=== PATIENT | female | born 1960 | race Caucasian/White ===

== ENCOUNTER → 2017-07-17 | Outpatient (CLI) | payer MEDICARE, BC ==
[~2017-07-17] MED LIST: ASPI-816 PO; ATOR10TA24 PO; CIPR-344 PO; GABA-549 PO; LEVO-3 PO; LISI30TA49 PO; LYRICA; METF-420 PO; METR-1 PO; NAPR500T75 PO; OMEP10CA40 PO; OMEP40CA48 PO; OXYC-865 PO; SITA50TA6 PO; TRAM-420 PO
== END ==
LOC: LAB 07:26
PROVIDERS: ATTEND Nurse Practitioner Family
DX: I10 Essential (primary) hypertension (principal); E11.65 Type 2 diabetes mellitus with hyperglycemia; E03.9 Hypothyroidism, unspecified
CPT/HCPCS: 36415; 82465; 83036; 83718; 84443; 84478

== ENCOUNTER 2018-02-20 10:08 | Emergency (ER) | payer MEDICARE, BC ==
[~2018-02-20 10:08] MED LIST changes: -ASPI-816 PO; +ASPI-870 PO; +FLU150 FT; -METF-420 PO; +METF-452 PO; +NITR-105 PO; +NYST100016 PO; +PHEN100T27 PO; +SULF-198 PO
[2018-02-20] MEDS ORDERED: CRAN250T (10:20)
[2018-02-20] MEDS ORDERED: ONDANSETRON 4 MG/2 ML VIAL IVP ONE (10:25)
[2018-02-20] MEDS ORDERED: NS(*) 0.9% 1000 ML BAG 1,000 ML IV ONE (10:25)
--- NOTE | 2018-02-20 10:29 | ER Report ---
History and Physical Time Seen By MD: 10:18 Hx. of Stated Complaint: N/V/D STARTED 3 DAYS AGO HPI/ROS CHIEF COMPLAINT: nausea, vomiting, diarrhea, abdominal cramping HISTORY OF PRESENT ILLNESS: pt is diabetic who has had 2 days of nausea, multiple loose stools, decreased appetite, chills. Abd pain is mild, cramping, radiates throughout abdomen. Pt attempted pepto bismol without relief. Has not taken diabetic meds in 2 d REVIEW OF SYSTEMS: Constitutional: chills Eyes: No discharge. ENT: No sore throat. Cardiovascular: No chest pain, no palpitations. Respiratory: No cough, no shortness of breath. Gastrointestinal: above Genitourinary: No hematuria. Musculoskeletal: intermittent l flank pain, now resolved Skin: No rashes. Neurological: mild salgado Remainder of the 14 system rev: Yes Allergies: Coded Allergies: Penicillins (Verified Adverse Reaction, Severe, VOMITING, 02/20/18) morphine (Verified Adverse Reaction, Severe, VOMITING, 02/20/18) Home Meds Reported Medications Cranberry Fruit Concentrate (Azo Cranberry) 250 Mg Tab.chew, PRN 02/20/18 Aspirin (Children's Aspirin) 81 Mg Tab.chew, 1 TAB PO DAILY 04/26/17 Atorvastatin Calcium (LIPITOR) 10 Mg Tablet, 1 TAB PO QDAY, TAB 04/26/17 Omeprazole (OMEPRAZOLE) 40 Mg Capsule.dr, 40 MG PO QDAY, CAP 04/26/17 Levothyroxine Sodium (LEVOTHYROXINE SODIUM) 100 Mcg Tablet, 100 MCG PO QDAY, TAB 03/01/17 Gabapentin (GABAPENTIN) 300 Mg Capsule, 300 MG PO BID, CAPSULE 03/11/16 Sitagliptin Phosphate (JANUVIA) 50 Mg Tablet, 50 MG PO QDAY 03/11/16 Metformin Hcl (METFORMIN HCL) 1,000 Mg Tablet, 1 TAB PO BID, TAB 04/29/15 Tramadol Hcl (TRAMADOL HCL) 50 Mg Tablet, 50 MG PO PRN PRN for PAIN 04/29/15 Discontinued Reported Medications Nystatin (Nystatin) 100,000 Unit/Ml Oral.susp, 5 ML PO QID PRN for 14 DAYS 01/22/18 Phenazopyridine Hcl (PHENAZOPYRIDINE HCL) 100 Mg Tablet, 100 MG PO TID, TAB 01/22/18 Sulfamethoxazole/Trimet 800-160 Mg Tab (BACTRIM DS TABLET) 1 Each Tablet, 1 TAB PO Q12H, TAB 01/22/18 Lisinopril (LISINOPRIL) 30 Mg Tablet, 30 MG PO QDAY 04/29/15 Discontinued Scripts Fluconazole (FLUCONAZOLE) 150 Mg Tab, 150 MG FT ONCE for 1 Day, #1 TAB Prov:FITZ DORSEY MD 01/22/18 Nitrofurantoin Monohyd/M-Cryst (MACROBID 100 MG CAPSULE) 100 Mg Capsule, 100 MG PO BID for 3 Days, #6 CAPSULE Prov:FITZ DORSEY MD 01/22/18 Reviewed Nurses Notes: Yes Hx Smoking: No Smoking Status: Former Smoker Hx Substance Use Disorder: No Hx Alcohol Use: No Constitutional Vital Sign - Last 24 Hours 02/20/18 02/20/18 02/20/18 02/20/18 10:11 10:15 11:04 11:15 Temp 98.0 Pulse 74 56 Resp 20 B/P (MAP) 116/78 121/76 (91) Pulse Ox 97 100 96 O2 Delivery Room Air Physical Exam General Appearance: The patient is alert, has no immediate need for airway protection and no signs of toxicity. [ ] Eyes: Pupils equal and round no pallor or injection. ENT, Mouth: Mucous membranes are moist. Respiratory: There are no retractions, lungs are clear to auscultation. Cardiovascular: Regular rate and rhythm. [ ] Gastrointestinal: Abdomen is soft and non tender, no masses, bowel sounds hyperactive Neurological: alert, oriented Skin: Warm and dry, no rashes. Musculoskeletal: Neck is supple non tender. Extremities are nontender, nonswollen and have full range of motion. DIFFERENTIAL DIAGNOSIS: After history and physical exam differential diagnosis was considered for abdominal pain including but not limited to appendicitis, cholecystitis, gastritis and urinary tract infection. Medical Decision Making Data Points Result Diagram: 02/20/18 1020 02/20/18 1020 Laboratory Hematology Test 02/20/18 10:20 02/20/18 11:06 Red Blood Count 5.07 M/uL (4.17-5.56) Mean Corpuscular Volume 85.2 fL (80.0-96.0) Mean Corpuscular Hemoglobin 28.8 pg (26.0-33.0) Mean Corpuscular Hemoglobin Concent 33.9 g/dL (32.0-36.0) Red Cell Distribution Width 14.2 % (11.5-14.5) Mean Platelet Volume 8.0 fL (7.2-11.1) Neutrophils (%) (Auto) 69.2 % (39.4-72.5) Lymphocytes (%) (Auto) 16.9 % (17.6-49.6) Monocytes (%) (Auto) 9.6 % (4.1-12.4) Eosinophils (%) (Auto) 4.0 % (0.4-6.7) Basophils (%) (Auto) 0.3 % (0.3-1.4) Nucleated RBC Relative Count (auto) 0.1 /100WBC Neutrophils # (Auto) 3.1 K/uL (2.0-7.4) Lymphocytes # (Auto) 0.8 K/uL (1.3-3.6) Monocytes # (Auto) 0.4 K/uL (0.3-1.0) Eosinophils # (Auto) 0.2 K/uL (0.0-0.5) Basophils # (Auto) 0.0 K/uL (0.0-0.1) Nucleated RBC Absolute Count (auto) 0.01 K/uL Sodium Level 139 mmol/L (137-145) Potassium Level 3.7 mmol/L (3.5-5.0) Chloride Level 100 mmol/L (98-107) Carbon Dioxide Level 23 mmol/L (22-31) Blood Urea Nitrogen 15 mg/dl (7-18) Creatinine 0.80 mg/dl (0.52-1.04) Glomerular Filtration Rate Calc > 60.0 Random Glucose 135 mg/dl (75-110) Calcium Level 9.3 mg/dl (8.4-10.2) Total Bilirubin 0.7 mg/dl (0.2-1.3) Aspartate Amino Transf (AST/SGOT) 53 U/L (0-35) Alanine Aminotransferase (ALT/SGPT) 54 U/L (0-56) Alkaline Phosphatase 74 U/L (0-126) Total Protein 7.5 g/dl (6.3-8.2) Albumin 4.1 g/dl (3.5-5.0) Lipase 75 U/L (23-300) Urine Color Yellow Urine Clarity Clear Urine pH 5.0 pH (4.8-9.5) Urine Specific [place] 1.026 Urine Protein Negative mg/dL (NEGATIVE) Urine Glucose (UA) Negative mg/dL (NEGATIVE) Urine Ketones 20 mg/dL (NEGATIVE) Urine Blood Negative (NEGATIVE) Urine Nitrite Negative (NEGATIVE) Urine Bilirubin Negative (NEGATIVE) Urine Urobilinogen Negative mg/dL (0.2-1.9) Urine Leukocyte Esterase Trace (NEGATIVE) Urine RBC None /HPF (0-2/HPF) Urine WBC 6 /HPF (0-5/HPF) Urine Squamous Epithelial Cells Many /LPF (</=FEW) Urine Bacteria Negative /HPF (NONE-FEW) Urine Mucus Few /HPF (NONE-FEW) Chemistry Test 02/20/18 10:20 02/20/18 11:06 White Blood Count 4.5 k/uL (4.5-11.0) Red Blood Count 5.07 M/uL (4.17-5.56) Hemoglobin 14.6 g/dL (12.0-16.0) Hematocrit 43.2 % (34.0-47.0) Mean Corpuscular Volume 85.2 fL (80.0-96.0) Mean Corpuscular Hemoglobin 28.8 pg (26.0-33.0) Mean Corpuscular Hemoglobin Concent 33.9 g/dL (32.0-36.0) Red Cell Distribution Width 14.2 % (11.5-14.5) Platelet Count 285 K/uL (150-450) Mean Platelet Volume 8.0 fL (7.2-11.1) Neutrophils (%) (Auto) 69.2 % (39.4-72.5) Lymphocytes (%) (Auto) 16.9 % (17.6-49.6) Monocytes (%) (Auto) 9.6 % (4.1-12.4) Eosinophils (%) (Auto) 4.0 % (0.4-6.7) Basophils (%) (Auto) 0.3 % (0.3-1.4) Nucleated RBC Relative Count (auto) 0.1 /100WBC Neutrophils # (Auto) 3.1 K/uL (2.0-7.4) Lymphocytes # (Auto) 0.8 K/uL (1.3-3.6) Monocytes # (Auto) 0.4 K/uL (0.3-1.0) Eosinophils # (Auto) 0.2 K/uL (0.0-0.5) Basophils # (Auto) 0.0 K/uL (0.0-0.1) Nucleated RBC Absolute Count (auto) 0.01 K/uL Glomerular Filtration Rate Calc > 60.0 Calcium Level 9.3 mg/dl (8.4-10.2) Total Bilirubin 0.7 mg/dl (0.2-1.3) Aspartate Amino Transf (AST/SGOT) 53 U/L (0-35) Alanine Aminotransferase (ALT/SGPT) 54 U/L (0-56) Alkaline Phosphatase 74 U/L (0-126) Total Protein 7.5 g/dl (6.3-8.2) Albumin 4.1 g/dl (3.5-5.0) Lipase 75 U/L (23-300) Urine Color Yellow Urine Clarity Clear Urine pH 5.0 pH (4.8-9.5) Urine Specific [place] 1.026 Urine Protein Negative mg/dL (NEGATIVE) Urine Glucose (UA) Negative mg/dL (NEGATIVE) Urine Ketones 20 mg/dL (NEGATIVE) Urine Blood Negative (NEGATIVE) Urine Nitrite Negative (NEGATIVE) Urine Bilirubin Negative (NEGATIVE) Urine Urobilinogen Negative mg/dL (0.2-1.9) Urine Leukocyte Esterase Trace (NEGATIVE) Urine RBC None /HPF (0-2/HPF) Urine WBC 6 /HPF (0-5/HPF) Urine Squamous Epithelial Cells Many /LPF (</=FEW) Urine Bacteria Negative /HPF (NONE-FEW) Urine Mucus Few /HPF (NONE-FEW) Urinalysis Test 02/20/18 11:06 Urine Color Yellow Urine Clarity Clear Urine pH 5.0 pH (4.8-9.5) Urine Specific [place] 1.026 Urine Protein Negative mg/dL (NEGATIVE) Urine Glucose (UA) Negative mg/dL (NEGATIVE) Urine Ketones 20 mg/dL (NEGATIVE) Urine Blood Negative (NEGATIVE) Urine Nitrite Negative (NEGATIVE) Urine Bilirubin Negative (NEGATIVE) Urine Urobilinogen Negative mg/dL (0.2-1.9) Urine Leukocyte Esterase Trace (NEGATIVE) Urine RBC None /HPF (0-2/HPF) Urine WBC 6 /HPF (0-5/HPF) Urine Squamous Epithelial Cells Many /LPF (</=FEW) Urine Bacteria Negative /HPF (NONE-FEW) Urine Mucus Few /HPF (NONE-FEW) ED Course/Re-evaluation ED Course Pt improved after ED eval; ken po. No e/o acute abd or sig dehydration after ED eval. Will d/c with SRPs. Decision to Disposition Date: Feb 20, 2018 Decision to Disposition Time: 11:46 Depart Departure Latest Vital Signs Vital Signs Date Time Temp Pulse Resp B/P (MAP) Pulse Ox O2 Delivery O2 Flow Rate FiO2 02/20/18 11:15 56 96 02/20/18 11:04 121/76 (91) 02/20/18 10:11 98.0 20 Room Air Impression: Primary Impression: Acute gastroenteritis Condition: Improved Disposition: HOME OR SELF-CARE Referrals: WILLIAM SAUCEDA APRN (PCP) New Scripts Ondansetron (ZOFRAN ODT) 4 Mg Tab.rapdis 4 MG PO Q6H PRN for NAUSEA/VOMITING, #10 TAB.LEE 0 Refills Prov: ADAM DORSEY MD 02/20/18 Patient Instructions: Gastroenteritis (ED) Additional Instructions: Return if feeling worse or for any concerns. ADAM DORSEY MD Feb 20, 2018 10:29
[2018-02-20 10:33] LABS: PLATELET COUNT, AUTOMATED 285 K/uL (150-450)
[2018-02-20] MEDS ORDERED: ONDA4TAB PO (11:48)
[2018-02-20 11:50] VITALS: BP 106/68
[2018-02-20] MEDS ORDERED: ONDANSETRON 4 MG ODT TH SL ONE (11:50)
== END 2018-02-20 12:02 | disposition home or self-care (01) ==
LOC: ER 10:34
DX: K52.9 Noninfective gastroenteritis and colitis, unspecified (principal)
CPT/HCPCS: 81001; 83690; 85025; 96374; 99283; J2405; J7030; Q0162; 82040; 82247; 82310; 82374; 82435; 82565; 82947; 84075; 84132; 84155; 84295; 84450; 84460; 84520; S0119

== ENCOUNTER → 2018-03-03 | Outpatient (CLI) | payer MEDICARE, BC ==
[~2018-03-03] MED LIST changes: +CRAN250T; +ONDA4TAB PO
--- NOTE | 2018-03-04 08:28 | RADIOLOGY IMAGING REPORT ---
FACILITY: [facility] PATIENT NAME: AGUSTINA JOYA : [id number] MR: [id number] V: [id number] EXAM DATE: [id number] ORDERING PHYSICIAN: WILLIAM SAUCEDA TECHNOLOGIST: Tracey Romo PROCEDURE:BILATERAL DIGITAL SCREENING MAMMOGRAM WITH CAD ASSISTED INTERPRETATION & 3D TOMOSYNTHESIS COMPARISON:Prior mammograms 12/30/16, 11/12/15, 10/27/12, 09/22/12. INDICATIONS:SCREENING FINDINGS: There is predominant fatty replacement throughout the breasts. The parenchymal pattern has remained stable allowing for difference in mammographic technique & patient positioning. There is no evidence of malignant appearing mass, malignant appearing calcifications or other secondary sign of malignancy in either breast. DIAGNOSTIC CATEGORY 1--NEGATIVE. RECOMMENDATIONS: ROUTINE MAMMOGRAM AND CLINICAL EVALUATION. IMPRESSION: BIRADS 1: Negative. No significant abnormality is seen. Dictated by: Agustina Phan M.D. on 03/03/2018 at 16:01 Transcribed by: ELBA on 03/04/2018 at 7:48 Approved by: Agustina Phan M.D. on 03/04/2018 at 8:27 [facility]
== END ==
LOC: MAMO 02-11 03:51
PROVIDERS: ATTEND Nurse Practitioner Family
DX: Z12.31 Encounter for screening mammogram for malignant neoplasm of breast (principal)
CPT/HCPCS: 77063; 77067

== ENCOUNTER → 2018-05-31 | Outpatient (CLI) | payer BC, MEDICARE ==
[~2018-05-31] MED LIST changes: +PRED20TA6 PO
== END ==
LOC: LAB 07:15
PROVIDERS: ATTEND Nurse Practitioner Family
DX: E11.65 Type 2 diabetes mellitus with hyperglycemia (principal); E03.9 Hypothyroidism, unspecified
CPT/HCPCS: 36415; 82040; 82247; 82310; 82374; 82435; 82565; 82947; 83036; 84075; 84132; 84155; 84295; 84443; 84450; 84460; 84520

== ENCOUNTER 2018-06-08 10:17 | Emergency (ER) | payer BC, MEDICARE ==
[2018-06-08 10:30] VITALS: BP 132/75
--- NOTE | 2018-06-08 10:34 | ER Report ---
History and Physical Time Seen By MD: 10:28 Hx. of Stated Complaint: Pt. here with lower back pain that radiates down her right leg, known sciatica pain. Pt here recently, was given steroids that helped, but the course of steroids has been completed and now the pain has returned. Anti-inflammatories not helping. Pain level now 10/10; increases with weight bearing. HPI/ROS CHIEF COMPLAINT: Sciatica pain HISTORY OF PRESENT ILLNESS: Patient is a 58-year-old obese female lying history of sciatic issue secondary to lumbar degenerative disc disease patient does have a right hip arthroplasty as well patient says that for the last week or so she's been getting worse pain in her right gluteal area rating down her leg pain with ambulation no numbness no saddle paresthesias no urinary bladder bowel incontinence consistent with prior episodes has responded well to steroids in the past and has an appointment with an orthopedic physician in 4 days patient has no additional complaints noted no recent history of trauma REVIEW OF SYSTEMS: Respiratory: No cough, no dyspnea. Cardiovascular: No chest pain, no palpitations. Gastrointestinal: No vomiting, no abdominal pain. Musculoskeletal: Sciatica back pain Remainder of the 14 system rev: Yes Allergies: Coded Allergies: Penicillins (Verified Adverse Reaction, Severe, VOMITING, 06/08/18) morphine (Verified Adverse Reaction, Severe, VOMITING, 06/08/18) Home Meds Active Scripts Prednisone (PREDNISONE) 20 Mg Tablet, 40 MG PO QDAY for 4 Days, #8 TAB Prov:YOLANDA CASTRO DO 05/08/18 Ondansetron (ZOFRAN ODT) 4 Mg Tab.rapdis, 4 MG PO Q6H PRN for NAUSEA/VOMITING, #10 TAB.LEE 0 Refills Prov:ADAM DORSEY MD 02/20/18 Reported Medications Cranberry Fruit Concentrate (Azo Cranberry) 250 Mg Tab.chew, PRN 02/20/18 Aspirin (Children's Aspirin) 81 Mg Tab.chew, 1 TAB PO DAILY 04/26/17 Atorvastatin Calcium (LIPITOR) 10 Mg Tablet, 1 TAB PO QDAY, TAB 04/26/17 Omeprazole (OMEPRAZOLE) 40 Mg Capsule.dr, 40 MG PO QDAY, CAP 04/26/17 Levothyroxine Sodium (LEVOTHYROXINE SODIUM) 100 Mcg Tablet, 100 MCG PO QDAY, TAB 03/01/17 Gabapentin (GABAPENTIN) 300 Mg Capsule, 300 MG PO BID, CAPSULE 03/11/16 Sitagliptin Phosphate (JANUVIA) 50 Mg Tablet, 50 MG PO QDAY 03/11/16 Metformin Hcl (METFORMIN HCL) 1,000 Mg Tablet, 1 TAB PO BID, TAB 04/29/15 Tramadol Hcl (TRAMADOL HCL) 50 Mg Tablet, 50 MG PO PRN PRN for PAIN 04/29/15 Reviewed Nurses Notes: Yes Old Medical Records Reviewed: Yes Hx Smoking: No Smoking Status: Former Smoker Hx Substance Use Disorder: No Hx Alcohol Use: No Constitutional Vital Sign - Last 24 Hours 06/08/18 10:21 Temp 98.3 Pulse 64 Resp 16 B/P (MAP) 141/78 Pulse Ox 97 O2 Delivery Room Air Physical Exam General Appearance: The patient is alert, has no immediate need for airway protection and no current signs of toxicity. [ ] Eyes: Pupils equal and round no injection. Respiratory: Chest is non tender, lungs are clear to auscultation. Cardiac: regular rate and rhythm [ ] Gastrointestinal: Abdomen is soft and non tender, no masses, bowel sounds normal. Musculoskeletal: Neck examination shows an inability to fully lift the right lower extremity more than a couple of centimeters and a positive straight-leg lift test with consistency of low back lumbar issues neurovascularly intact otherwise unremarkable exam Neck is supple and non tender. Extremities have full range of motion and are non tender. Skin: No rashes or lesions. [ ] DIFFERENTIAL DIAGNOSIS: After history and physical exam differential diagnosis was considered for sciatica Medical Decision Making ED Course/Re-evaluation ED Course Medical decision making 58-year-old female comes emergency Department with a complaint of sciatica symptoms had consistently numerous times in the past we'll start her on by mouth prednisone which she had good relief before we'll give her a work excuse starter with a dose today of Toradol and continue the ibuprofen as prescribe her primary care return if symptoms worsen Decision to Disposition Date: Jun 08, 2018 Decision to Disposition Time: 10:34 Depart Departure Latest Vital Signs Vital Signs Date Time Temp Pulse Resp B/P (MAP) Pulse Ox O2 Delivery O2 Flow Rate FiO2 06/08/18 10:21 98.3 64 16 141/78 97 Room Air Impression: Primary Impression: Sciatica Condition: Improved Disposition: HOME OR SELF-CARE Referrals: WILLIAM SAUCEDA APRN (PCP) 5 Days Patient Instructions: Sciatica (DC) DYAN JOYA MD Jun 08, 2018 10:34
[2018-06-08] MEDS ORDERED: KETOROLAC 60 MG/2 ML VIAL IM ONE (10:35)
== END 2018-06-08 10:52 | disposition home or self-care (01) ==
LOC: ER 10:40
DX: M54.31 Sciatica, right side (principal)
CPT/HCPCS: 96372; 99283; J1885

== ENCOUNTER 2018-06-18 11:52 | Emergency (ER) | payer BC, MEDICARE ==
--- NOTE | 2018-06-18 11:53 | ER Report ---
History and Physical Time Seen By MD: 11:53 HPI/ROS CHIEF COMPLAINT: Back pain HISTORY OF PRESENT ILLNESS: Patient is a 58-year-old female who presents emergency department with complaint of back pain. She was at receiving intravenous emergency department for back pain on 06/08/2018; this is a recurring problem for this patient. She has had prior back surgery and is followed by Dr. Becca Victoria at [facility]. Patient states that she was seen at [facility] yesterday and had an MRI that showed a herniated disc at the L2 region which correlates with her pain symptoms by dermatome. She states that the next course of action is to have Dr. Ha perform some type of injection and if that doesn't work they will consider surgery. Patient does have a prior fusion of L3-S1 that was done in 1997. She states that she has no saddle anesthesia, she has painful ambulation but denies foot drop. Further she denies any retention or incontinence of urine or stool. Patient's somewhat angry that no and is "addressing her pain". The [employer] prescription website was reviewed. The patient did recently on June 13 receive a 2 day supply of Valium she does get tramadol prescribed by her primary care provider as well as gabapentin but no other opiates were noted. She further states that she did try one of her husbands meloxicam was this morning but no relief was obtained. She denies any fevers or chills. She denies abdominal pain but does report intermittent groin pain. REVIEW OF SYSTEMS: Respiratory: No cough, no dyspnea. Cardiovascular: No chest pain, no palpitations. Gastrointestinal: No vomiting, no abdominal pain. Musculoskeletal: Lumbar sacral pain along with right-sided sciatica symptoms Allergies: Coded Allergies: Penicillins (Verified Adverse Reaction, Severe, VOMITING, 06/08/18) morphine (Verified Adverse Reaction, Severe, VOMITING, 06/08/18) Home Meds Active Scripts Methocarbamol (ROBAXIN-750) 750 Mg Tablet, 1500 MG PO TID for Muscle Relaxant, #30 TAB 0 Refills Prov:ADAM VOGT MD 06/18/18 Oxycodone Hcl/Acetaminophen (PERCOCET 5-325 MG TABLET) 1 Each Tablet, 1 EACH PO Q4H for PAIN, #25 TAB 0 Refills Prov:ADAM VOGT MD 2/2/19 Prednisone (PREDNISONE) 20 Mg Tablet, 40 MG PO QDAY for 4 Days, #8 TAB Prov:YOLANDA CASTRO DO 05/08/18 Ondansetron (ZOFRAN ODT) 4 Mg Tab.rapdis, 4 MG PO Q6H PRN for NAUSEA/VOMITING, #10 TAB.LEE 0 Refills Prov:ADAM DORSEY MD 02/20/18 Reported Medications Cranberry Fruit Concentrate (Azo Cranberry) 250 Mg Tab.chew, PRN 02/20/18 Aspirin (Children's Aspirin) 81 Mg Tab.chew, 1 TAB PO DAILY 04/26/17 Atorvastatin Calcium (LIPITOR) 10 Mg Tablet, 1 TAB PO QDAY, TAB 04/26/17 Omeprazole (OMEPRAZOLE) 40 Mg Capsule.dr, 40 MG PO QDAY, CAP 04/26/17 Levothyroxine Sodium (LEVOTHYROXINE SODIUM) 100 Mcg Tablet, 100 MCG PO QDAY, TAB 03/01/17 Gabapentin (GABAPENTIN) 300 Mg Capsule, 300 MG PO BID, CAPSULE 03/11/16 Sitagliptin Phosphate (JANUVIA) 50 Mg Tablet, 50 MG PO QDAY 03/11/16 Metformin Hcl (METFORMIN HCL) 1,000 Mg Tablet, 1 TAB PO BID, TAB 04/29/15 Tramadol Hcl (TRAMADOL HCL) 50 Mg Tablet, 50 MG PO PRN PRN for PAIN 04/29/15 Past Medical/Surgical History History of diabetes diabetic neuropathy, history of of back pain and lumbar fusion L3-S1. Hx Smoking: No Smoking Status: Former Smoker Hx Substance Use Disorder: No Hx Alcohol Use: No Constitutional Vital Sign - Last 24 Hours 06/18/18 11:56 Temp 97.6 Pulse 63 Resp 20 B/P (MAP) 172/99 Pulse Ox 98 O2 Delivery Room Air Physical Exam General appearance: alert no distress. Back: Thoracic spine has no spinal or paraspinal tenderness to palpation. Lumbar spine has no spinal tenderness moderateparaspinal tenderness Skin: No lesions and no rashes. Vascular: Normal capillary refill and pulses to feet. Neurological: Motor function: leg strength normal and symmetric for both legs Sensory function: Decreased sensation along L2 dermatome Straight leg raise noted to be positive [ ] DIFFERENTIAL DIAGNOSIS: After history and physical exam differential diagnosis was considered for back pain including muscular strain, herniated disc, intra- abdominal and renal causes. Medical Decision Making EKG/Imaging Imaging [facility] PATIENT NAME: Agustina Bowden : 1960 MR: [id number] V: [id number] EXAM DATE: ORDERING PHYSICIAN: ADAM VOGT TECHNOLOGIST: [place] [facility] [place]ustina Bow[place] : 1960 Visit/Account:[id number] Date of Sevice: 06/18/2018 Study: CT scan of the lumbar spine without contrast. Indication:Low back pain Comparison study: June 14, 2018 Technique: Multiple axial images are obtained through the lumbar spine without the use of intravenous contrast. Coronal and sagittal two-dimensional reconstructions were made from the original data set. One of the following dose optimization techniques was utilized in the performance of this exam: Automated exposure control; adjustment of the mA an d/or kV according to the patient's size; or use of an iterative reconstruction technique. Specific details can be referenced in the facility's radiology CT exam operational policy. Alignment: The patient is status post L3-S1 posterior fusion. There are pedicle screws present within the L3, L4, and L5 vertebrae. There is discectomy hardware present within the L3-4, L4-5, and L5-S1 disc levels. Paraspinal soft tissues: Unremarkable There is no evidence of spondylolisthesis. There is no evidence of s pondylolysis. There is no evidence of acute bony abnormality. There is no evidence of compression fracture of the lumbar spine. Disc spaces: L1/2:At this level, there is vacuum disc degeneration. There is no evidence of disc bulge or herniation. There is no significant neural foraminal stenosis or spinal stenosis. L2/3: At this level, there is a mild diffuse disc bulge. This does cause significant spinal stenosis. There is mild bilateral neural foraminal stenosis. The right-sided free disc fragment seen on the previous MRI is not well visualized on this exam. L3/4: At this level, the patient is status post discectomy laminectomy and fusion. There is no significant neural foraminal stenosis or spinal stenosis. L4/5: At this level, the patient is status post discectomy laminectomy and fusion. There is no evidence of significant spinal stenosis. There is moderate right bony neural foraminal stenosis. There is no significant left neural foraminal stenosis. L5/S1: At this level, the patient is status post discectomy laminectomy and fusion. There is no significant spinal stenosis or neural foraminal stenosis identified. IMPRESSION: Disc pathology and spondylopathy present as described. On the preceding MRI, a free disc fragment extending from the L2-3 disc was identified. This is not well seen on the current exam. Please see the body of the report for full description of individual disc levels. Report Dictated By: Clay Dow at 06/18/2018 12:45 PM Report E-Signed By: Clay Dow at 06/18/2018 1:02 PM WSN:[id number] ED Course/Re-evaluation ED Course 06/18/2018 12:14:40 pm patient with likely L2 herniated disc space on history and physical exam. Plan at this time will be to obtain a noncontrast CT of the lumbar spine which apparently was of the very next step that Dr. Victoria was trying to get accomplished. We will give IM Dilaudid as well as Zofran for nausea. Disposition pending results of CT scan 06/18/2018 12:46:06 pm in significantly improved after IM Dilaudid. Awaiting results of CT scan Decision to Disposition Date: Jun 18, 2018 Decision to Disposition Time: 13:08 Depart Departure Latest Vital Signs Vital Signs Date Time Temp Pulse Resp B/P (MAP) Pulse Ox O2 Delivery O2 Flow Rate FiO2 06/18/18 11:56 97.6 63 20 172/99 98 Room Air Impression: Primary Impression: Sciatica Condition: Improved Disposition: HOME OR SELF-CARE Referrals: WILLIAM VICTORIA APRN (PCP) BECCA VICTORIA MD schedule a follow up appointment to review your CT scan and discuss further options for treating your back pain New Scripts Methocarbamol (ROBAXIN-750) 750 Mg Tablet 1500 MG PO TID for Muscle Relaxant, #30 TAB 0 Refills Prov: ADAM VOGT MD 06/18/18 Oxycodone Hcl/Acetaminophen (PERCOCET 5-325 MG TABLET) 1 Each Tablet 1 EACH PO Q4H for PAIN, #25 TAB 0 Refills Prov: ADAM VOGT MD 06/18/18 Patient Instructions: Sciatica (ED) Additional Instructions: Continue all your other medications with the exception of tramadol while you are taking the oxycodone. Problem Qualifiers Primary Impression: Sciatica Laterality: right Qualified Codes: M54.31 - Sciatica, right side ADAM VOGT MD Jun 18, 2018 11:53
[2018-06-18] MEDS ORDERED: HYDROMORPHONE HCL 1 MG/ML SYRINGE IM ONE (12:10)
[2018-06-18] MEDS ORDERED: ONDANSETRON 4 MG ODT TABDP SL ONE (12:10)
[2018-06-18] MEDS ORDERED: OXYC-865 PO (12:49)
[2018-06-18] MEDS ORDERED: METH-543 PO (12:49)
[2018-06-18 13:00] VITALS: BP 113/65
--- NOTE | 2018-06-18 13:06 | RADIOLOGY IMAGING REPORT ---
FACILITY: [facility] [place] PATIENT NAME: Agustina Bowden : 1960 MR: [id number] V: [id number] EXAM DATE: ORDERING PHYSICIAN: ADAM VOGT TECHNOLOGIST: Location: [facility] [place] Patient: Agustina Bowden : 1960 Visit/Account:[id number] Date of Sevice: 06/18/2018 Study: CT scan of the lumbar spine without contrast. Indication:Low back pain Comparison study: June 14, 2018 Technique: Multiple axial images are obtained through the lumbar spine without the use of intravenous contrast. Coronal and sagittal two-dimensional reconstructions were made from the original data set. One of the following dose optimization techniques was utilized in the performance of this exam: Autom ated exposure control; adjustment of the mA and/or kV according to the patient's size; or use of an i terative reconstruction technique. Specific details can be referenced in the facility's radiology C T exam operational policy. Alignment: The patient is status post L3-S1 posterior fusion. There are pedicle screws present within the L3, L4, and L5 vertebrae. There is discectomy hardware present within the L3-4, L4-5, and L5-S1 disc levels. Paraspinal soft tissues: Unremarkable There is no evidence of spondylolisthesis. There is no evidence of spondylolysis. There is no evidence of acute bony abnormality. There is no evidence of compression fracture of the l umbar spine. Disc spaces: L1/2:At this level, there is vacuum disc degeneration. There is no evidence of disc bulge or herniati on. There is no significant neural foraminal stenosis or spinal stenosis. L2/3: At this level, there is a mild diffuse disc bulge. This does cause significant spinal stenosis. There is mild bilateral neural foraminal stenosis. The right-sided free disc fragment seen on the pr evious MRI is not well visualized on this exam. L3/4: At this level, the patient is status post discectomy laminectomy and fusion. There is no signif icant neural foraminal stenosis or spinal stenosis. L4/5: At this level, the patient is status post discectomy laminectomy and fusion. There is no eviden ce of significant spinal stenosis. There is moderate right bony neural foraminal stenosis. There is n o significant left neural foraminal stenosis. L5/S1: At this level, the patient is status post discectomy laminectomy and fusion. There is no signi ficant spinal stenosis or neural foraminal stenosis identified. IMPRESSION: Disc pathology and spondylopathy present as described. On the preceding MRI, a free disc fragment extending from the L2-3 disc was identified. This is not w ell seen on the current exam. Please see the body of the report for full description of individual disc levels. Report Dictated By: Clay Dow at 06/18/2018 12:45 PM Report E-Signed By: Clay Dow at 06/18/2018 1:02 PM WSN:[id number]
== END 2018-06-18 13:29 | disposition home or self-care (01) ==
LOC: ER 11:57
DX: M54.31 Sciatica, right side (principal)
CPT/HCPCS: 72131; 96372; 99284; J1170; S0119

== ENCOUNTER 2018-07-27 00:07 | Inpatient (IN) | payer BC, MEDICARE ==
[2018-07-14 08:03] LABS: PLATELET COUNT, AUTOMATED 321 K/uL (150-450)
--- NOTE | 2018-07-14 09:20 | EKG ---
FACILITY: [facility] - [place] PATIENT NAME: MARGARET JOYA : [id number] MR: [id number] V: [id number] EXAM DATE: ORDERING PHYSICIAN: IESHA MONTES DE COA TECHNOLOGIST: TURNER Taylor Reason : PRE-OP Blood Pressure : / mmHG Vent. Rate : 061 BPM Atrial Rate : 061 BPM P-R Int : 198 ms QRS Dur : 084 ms QT Int : 424 ms P-R-T Axes : 011 013 012 degrees QTc Int : 426 ms Normal sinus rhythm Low voltage QRS Cannot rule out Anterior infarct , age undetermined Abnormal ECG Confirmed by TAMIR NAILS ([id number]) on 07/14/2018 1:02:16 PM Referred By: SOHAIL Confirmed By:TAMIR NAILS
[~2018-07-27] VITALS: Ht 165.1 cm; Wt 101.6 kg
[2018-07-27] VITALS (16 sets, daily range): BP systolic 113–144; BP diastolic 62–93
[~2018-07-27 00:07] MED LIST changes: +LISI-362 PO; +METH-543 PO
[2018-07-27] MEDS ORDERED: DEXAMETHASONE SOD PHOS 10MG/ML ONE ×2 (06:28→07:41)
[2018-07-27] MEDS ORDERED: BUPIVACAIN 0.25% INJ 50ML VIAL ONE (06:28)
[2018-07-27] MEDS ORDERED: LISI20TA29 PO (07:14)
[2018-07-27] MEDS ORDERED: fentaNYL CITR 250 MCG/5 ML AMP ONE (07:40)
[2018-07-27] MEDS ORDERED: PROPOFOL EMUL(*) 10MG/ML 20 ML 20 ML ONE (07:41)
[2018-07-27] MEDS ORDERED: LIDOCAINE MPF 1% 5 ML VIAL ONE (07:41)
[2018-07-27] MEDS ORDERED: ONDANSETRON 4 MG/2 ML VIAL ONE (07:41)
[2018-07-27] MEDS ORDERED: KETAMINE HCL 200 MG/20 ML MDV ONE (07:43)
[2018-07-27] MEDS ORDERED: SUGAMMADEX SOD 200 MG/2 ML SDV ONE (07:43)
[2018-07-27] MEDS ORDERED: HALOPERIDOL LACT 5 MG/ML VIAL IM ONE (09:46)
[2018-07-27] MEDS ORDERED: NS 0.9% IRRIGATION 1000ML PLCT IR ONE (10:33)
--- NOTE | 2018-07-27 11:46 | OPERATIVE REPORT 1 ---
EVENT DATE: July 27, 2018 SURGEON: Aram Victoria MD ANESTHESIOLOGIST: Galdino Sloan MD ANESTHESIA: General endotracheal. SURGERY AIDE: Filippo Leblanc PA-C PREOPERATIVE DIAGNOSIS Right L3 and L4 radiculopathy with right sided L2-L3 herniated nucleus pulposus. POSTOPERATIVE DIAGNOSIS Right L3 and L4 radiculopathy with right sided L2-L3 herniated nucleus pulposus. PROCEDURE PERFORMED 1. L2-L3 microdiskectomy. 2. Dural repair. IV FLUID 800 cc. ESTIMATED BLOOD LOSS 30 cc. IMPLANTS None. SPECIMENS None. DRAINS None. COMPLICATIONS There was an incidental durotomy. DISPOSITION Post-Anesthesia Care Unit. INDICATIONS FOR SURGERY Patient is a 58-year old female who has previously undergone L3 to L5 fusions. She has a history of ongoing back pain but more recently developed severe radiating pain into the right groin and down the right anterior thigh. We sent her for an MRI, which showed an inferiorly extruded disk herniation on the right side at L2-L3 that was contacting, compressing and displacing the L3 nerve root. We tried injections, which were not helpful, as well as activity modification and secondary to failure to improve with nonsurgical management Ms. Bowden was offered and elected to go L2-L3 microdiskectomy. Prior to surgery, I explained in detail to the patient the possible risks of surgery. These risks include bleeding, infection, damage to surrounding structures, nerve root injury, spinal fluid leak, meningitis, persistent and/or worsening pain, need for surgery, , blindness, sexual dysfunction, autonomic nervous system dysfunction and other unforeseen medical and surgical complications. An understanding that in general spinal surgery is more predictive at improving extremity discomfort than axial spine pain was stressed. Additional understanding that due to revision nature of the procedure, all potential risks were increased was also discussed. DESCRIPTION OF PROCEDURE On the day of surgery, the patient was met in the preoperative hold area and all questions were answered. The operative site was identified and marked by myself. The patient was brought in good condition to the operating room and after succumbing to anesthesia was positioned in the prone position on a Raul table. All bony protuberances and soft tissues were well padded in the standard fashion. Care was taken to maintain appropriate perfusion pressure during anesthesia. Preoperative antibiotics were administered according to the appropriate timing schedule. At the conclusion of the procedure, sponge and needle counts were correct x2. A spinal needle was placed on the spinous process of L2 and a lateral radiograph was obtained to confirm appropriate spinal level. The patient was then prepped and draped in the standard sterile orthopedic fashion and sharp dissection was carried out through a 1-inch incision down to the spinous process of L2. Soft tissues were elevated off the spinous process of L2 in a subperiosteal manner. The spinous process of L3 had significant overlying scar tissue which was removed piecemeal using a pituitary rongeur and electrocautery. Ultimately, we were able to come down onto the L2-L3 interlaminar space and identify the ligamentum flavum. A curved curette was used to undermine the superior insertion of the ligamentum flavum from the inferior aspect of the L2 lamina. We then entered the canal and widened out the foraminotomy using #2 and #3 Kerrison rongeurs. I then was able to mobilize the shoulder of the nerve root and retract the nerve root medially, encountering multiple large disk fragments, which were removed one by one with pituitary rongeur. Luis elevator was passed anterior to the nerve root and the dura, sweeping and searching for further disk fragments. All further loose disk fragments were removed. The wound was then irrigated with copious sterile saline solution and bleeding was controlled. The [place] was used one last time to check for any further compression of the nerve root and at that point in time we encountered a small spinal fluid leak. I was able to identify a small rent on the lateral aspect of the nerve root shoulder. There were no significant neural elements protruding through that lead and when retraction of the nerve root shoulder was released, no further CSF was seen to leak through the lamina foraminotomy defect. Nevertheless, we elected to place a DuraGen patch over the nerve root shoulder, covering the durotomy and we then filled the entire lamina foraminotomy defect with DuraSeal to ensure no further spinal fluid lead would be present. Valsalva maneuvers were performed and no further spinal fluid was noted. The wound was then closed in layers using interrupted sutures for the deep fascia, inverted interrupted sutures for the subcutaneous tissue and running subcuticular skin stitch. Sponge and needle counts were correct x2. POSTOPERATIVE CARE PLAN The patient will remain flat on her back for the next 24 hours. We will gradually sit her up tomorrow starting at about 10 or 11 o'clock and as long as she does not develop postural headaches then we will get her up and mobilized and she will likely be discharged home tomorrow. She will follow up in my clinic in two weeks' time for repeat x-rays and examination. SURESH
[2018-07-27] MEDS ORDERED: METH-543 PO (13:14)
[2018-07-27] MEDS ORDERED: PER PO (13:14)
--- NOTE | 2018-07-27 13:29 | Hospitalist Consultation ---
History of Present Illness Requesting Physician Dr. Victoria Reason for Consult Medical Management Chief Complaint s/p lumbar surgery History of Present Illness She was admitted s/p lumbar surgery. It is reported she sustained a dural leak during surgery. History Problems: (1) GERD (gastroesophageal reflux disease) Status: Chronic (2) Type 2 diabetes mellitus Status: Chronic (3) Hypothyroidism Status: Chronic (4) Hypertension Status: Chronic (5) Hyperlipidemia Status: Chronic Home Meds Reported Medications Oxycodone/Acetaminophen (OXYCODONE/ACETAMINOPHEN 5MG/325 MG) 5 Mg/325 Mg Tab, 1 TAB PO Q4H PRN for PAIN 07/27/18 Methocarbamol (ROBAXIN-750) 750 Mg Tablet, 1500 MG PO TID PRN for MUSCLE SPASMS 07/27/18 Lisinopril (LISINOPRIL) 20 Mg Tablet, 20 MG PO QDAY, TAB 07/27/18 Aspirin (Children's Aspirin) 81 Mg Tab.chew, 1 TAB PO DAILY 04/26/17 Atorvastatin Calcium (LIPITOR) 10 Mg Tablet, 1 TAB PO QDAY, TAB 04/26/17 Omeprazole (OMEPRAZOLE) 40 Mg Capsule.dr, 40 MG PO QDAY, CAP 04/26/17 Levothyroxine Sodium (LEVOTHYROXINE SODIUM) 100 Mcg Tablet, 100 MCG PO QDAY, TAB 03/01/17 Gabapentin (GABAPENTIN) 300 Mg Capsule, 300 MG PO HS, CAPSULE 03/11/16 Sitagliptin Phosphate (JANUVIA) 50 Mg Tablet, 50 MG PO QDAY 03/11/16 Metformin Hcl (METFORMIN HCL) 1,000 Mg Tablet, 1 TAB PO BID, TAB 04/29/15 Tramadol Hcl (TRAMADOL HCL) 50 Mg Tablet, 50 MG PO BID PRN for PAIN 04/29/15 Discontinued Reported Medications Lisinopril (LISINOPRIL) 10 Mg Tablet, 10 MG PO QDAY, TAB 07/20/18 Cranberry Fruit Concentrate (Azo Cranberry) 250 Mg Tab.chew, PRN 02/20/18 Discontinued Scripts Methocarbamol (ROBAXIN-750) 750 Mg Tablet, 1500 MG PO TID for Muscle Relaxant, #30 TAB 0 Refills Prov:ADAM VOGT MD 06/18/18 Oxycodone Hcl/Acetaminophen (PERCOCET 5-325 MG TABLET) 1 Each Tablet, 1 EACH PO Q4H for PAIN, #25 TAB 0 Refills Prov:ADAM VOGT MD 06/18/18 Ondansetron (ZOFRAN ODT) 4 Mg Tab.rapdis, 4 MG PO Q6H PRN for NAUSEA/VOMITING, #10 TAB.LEE 0 Refills Prov:ADAM DORSEY MD 02/20/18 Prednisone (PREDNISONE) 20 Mg Tablet, 40 MG PO QDAY for 4 Days, #8 TAB Prov:YOLANDA CASTRO DO 05/08/18 Allergies: Coded Allergies: Penicillins (Verified Adverse Reaction, Severe, VOMITING, 06/08/18) morphine (Verified Adverse Reaction, Severe, VOMITING, 06/08/18) Patient History: FH: dementia MOTHER FH: diabetes mellitus FATHER BROTHER OR SISTER FH: hypertension FATHER MOTHER BROTHER OR SISTER BROTHER OR SISTER FH: lung cancer FATHER FH: neuropathy MOTHER Hx Smoking: Yes Smoking Status: Former Smoker Caffeine Intake: Coffee Caffeine/Cups Per Day: 2CPD COFFEE, SODA 3-4 X/WK Hx Alcohol Use: No Hx Substance Use Disorder: No Review of Systems All Systems Reviewed/Normal: Yes, Except as Noted Exam Vital Signs Vital Signs Date Time Temp Pulse Resp B/P (MAP) Pulse Ox O2 Delivery O2 Flow Rate FiO2 07/27/18 12:54 97.6 69 12 142/93 (109) 99 Nasal Cannula 2.0 General Appearance: Alert, Awake, No Acute Distress, Afebrile Neuro: No Gross deficits Cardiovascular: Regular Rate and Rhythm Respiratory: No Respiratory Distress, Clear to Auscultation GI: Abd Soft and Non-Tender Psych: Alert & Oriented X3, Appropriate Mood & Affect Assessment and Plan Problems: (1) S/P discectomy Status: Acute Assessment & Plan: Followed by Dr. Victoria. She has HOB flat secondary to dural leak. (2) Type 2 diabetes mellitus Status: Chronic Assessment & Plan: She is on chronic treatment with Metformin and Januvia. She will be placed on AC/HS blood glucose checks, SS insulin #2, and will resume Metformin tomorrow. (3) Hypertension Status: Chronic Assessment & Plan: She is on chronic treatment with Lisinopril. This has been restarted with hold parameters. (4) GERD (gastroesophageal reflux disease) Status: Chronic Assessment & Plan: She is on chronic treatment with Omeprazole. She will be placed on Protonix throughout admission. (5) Hypothyroidism Status: Chronic Assessment & Plan: She is on chronic treatment with Levothyroxine. (6) Hyperlipidemia Status: Chronic Assessment & Plan: She is on chronic treatment with Atorvastatin. Venous Thromboembolism Antithrombotics Is Pt On Any Antithrombotics?: No Prophylaxis Tx Contraindicated Pharmacological Contraindicati: Surgical Contraindication Exam Sepsis Risk: No Definite Risk Problem Qualifiers (1) Hypertension: Hypertension type: essential hypertension Qualified Codes: I10 - Essential (primary) hypertension ANTONIO DIAZP Jul 27, 2018 13:29
[2018-07-27] MEDS ORDERED: CLINDAMYCIN(*) 900 MG/NS 50 ML 50 ML IVPB ONE (14:20)
[2018-07-27] MEDS ORDERED: NORMOSOL R SOLN(*) 1000 ML BAG 1,000 ML IV PRN (14:20)
[2018-07-27] MEDS ORDERED: MIDAZOLAM 2 MG/2 ML VIAL IVP PRN (14:20)
[2018-07-27] MEDS ORDERED: APREPITANT 40 MG CAP PO ONE (14:20)
[2018-07-27] MEDS ORDERED: LIDOCAINE/SOD BICARB 8.4% SYR ID ONE (14:20)
[2018-07-27] MEDS ORDERED: ACETAMINOPHEN 500 MG TAB PO ONE (14:20)
[2018-07-27] MEDS ORDERED: BISACODYL 10 MG SUPP PR PRN (14:45)
[2018-07-27] MEDS ORDERED: DIAZEPAM 5 MG TAB PO PRN (14:45)
[2018-07-27] MEDS ORDERED: LR(*) 1000 ML BAG 1,000 ML IV PRN (14:45)
[2018-07-27] MEDS ORDERED: APAP/HYDROCODONE 325/5 TAB PO PRN (14:45)
[2018-07-27] MEDS ORDERED: ONDANSETRON 4 MG/2 ML VIAL IVP PRN (14:45)
[2018-07-27] MEDS ORDERED: MAGNESIUM HYDROXIDE* 30ML UDCP PO PRN (14:45)
[2018-07-27] MEDS ORDERED: oxyCODONE HCL 5 MG CAP PO PRN (14:45)
[2018-07-27] MEDS ORDERED: FLUSH 10 ML SYR IVP PRN (14:45)
[2018-07-27] MEDS ORDERED: BENZOCAINE/MENTHOL 1 EACH LOZG PO PRN (14:45)
[2018-07-27] MEDS ORDERED: ACETAMINOPHEN(*)1000 MG/100 ML 100 ML IVPB PRN (14:45)
[2018-07-27] MEDS ORDERED: diphenhydrAMINE 25 MG CAP PO PRN (14:45)
[2018-07-27] MEDS ORDERED: HYDROmorphone HCL 2 MG/ML SDV IVP PRN (14:45)
--- NOTE | 2018-07-27 17:00 | NUR ---
Physical Therapy Impression Orders are to lay flat overnight; PT will check for advancing orders tomorrow. Physical Therapy Goals Patient's Goals
[2018-07-27] MEDS: CLINDAMYCIN(*) 900 MG/NS 50 ML 50 ML IVPB SCH (17:28)
[2018-07-27] MEDS: INSULIN HUM LISPRO 100 UN/ML 3 ML VIAL SUBQ PRN ×2 (17:29→21:51)
[2018-07-27] MEDS: DOCUSATE SODIUM 100 MG CAP PO SCH (20:43)
[2018-07-27] MEDS ORDERED: GABAPENTIN 300 MG CAP PO SCH (21:00)
[2018-07-27] MEDS: ACETAMINOPHEN 500 MG TAB PO PRN (21:57)
[2018-07-28] MEDS: CLINDAMYCIN(*) 900 MG/NS 50 ML 50 ML IVPB SCH ×2 (00:59→09:02)
[2018-07-28 02:25] VITALS: BP 134/75
[2018-07-28] MEDS: ACETAMINOPHEN 500 MG TAB PO PRN (05:12)
[2018-07-28] MEDS ORDERED: LEVOTHYROXINE SOD 0.1 MG TAB PO SCH (06:00)
[2018-07-28] MEDS: metFORMIN HCL 500 MG TAB PO SCH ×2 (07:38→07:41)
[2018-07-28] MEDS: INSULIN HUM LISPRO 100 UN/ML 3 ML VIAL SUBQ PRN (07:39)
[2018-07-28 07:42] VITALS: BP 131/80
[2018-07-28 08:41] VITALS: Ht 165.1 cm; Wt 101.6 kg
--- NOTE | 2018-07-28 08:53 | RADIOLOGY IMAGING REPORT ---
FACILITY: [facility] [place] PATIENT NAME: Agustina Bowden : 1960 MR: [id number] V: [id number] EXAM DATE: ORDERING PHYSICIAN: BECCA SAUCEDA TECHNOLOGIST: Location: [facility] Patient: Agustina Bowden : 1960 Visit/Account:[id number] Date of Sevice: 07/27/2018 Technique: L-SPINE >4 VIEWS HISTORY: LUMBAR DISC HERNIATION L2-L3 Comparison studies: Lumbar spine radiographs 05/08/2018, CTA lumbar spine 06/18/2018 FINDINGS: Operative images were obtained of the lumbar spine. Posterior spinal fusion hardware is ag ain noted extending from L3 to L5. There is an body spacer at L5-S1. Posterior to the L3 vertebral body and access needle is noted. IMPRESSION: 1. Operative fluoroscopic images. Please see procedural report for complete details. Report Dictated By: Marques Vazquez DO at 07/28/2018 8:44 AM Report E-Signed By: Marques Vazquez DO at 07/28/2018 8:49 AM WSN:[id number]
[2018-07-28] MEDS ORDERED: PANTOPRAZOLE SOD 40 MG TABEC PO SCH (09:00)
[2018-07-28] MEDS: DOCUSATE SODIUM 100 MG CAP PO SCH (09:00)
[2018-07-28] MEDS ORDERED: LISINOPRIL 20 MG TAB PO SCH ×2 (09:00)
[2018-07-28] MEDS ORDERED: ATORVASTATIN 10 MG TAB PO SCH (09:00)
--- NOTE | 2018-07-28 10:18 | Hospitalist Progress Note ---
Subjective Progress Notes Subjective She has no complaints this morning. She had no acute events overnight. Patient Complains of: Cardiovascular: No: Chest Pain Respiratory: No: Shortness of Breath Physical Exam Vital Signs Date Time Temp Pulse Resp B/P (MAP) Pulse Ox O2 Delivery O2 Flow Rate FiO2 07/28/18 07:42 97.7 79 16 131/80 (97) 97 Nasal Cannula 0.5 Intake and Output 07/28/18 06:59 Intake Total 2462 ml Balance 2462 ml Intake Oral 445 ml IV Total 2017 ml # Voids 8 General Appearance: Alert, Awake, No Acute Distress, Afebrile Neuro: No Gross deficits Cardiovascular: Regular Rate and Rhythm Respiratory: No Respiratory Distress, Clear to Auscultation Psych: Alert & Oriented X3, Appropriate Mood & Affect Assessment and Plan Problems: (1) S/P discectomy Status: Acute Assessment & Plan: Followed by Dr. Victoria. She has HOB flat secondary to dural leak, but will start to raise HOB today. (2) Type 2 diabetes mellitus Status: Chronic Assessment & Plan: She is on chronic treatment with Metformin and Januvia. She will be placed on AC/HS blood glucose checks, SS insulin #2, and will resume Metformin today. (3) Hypertension Status: Chronic Assessment & Plan: She is on chronic treatment with Lisinopril. This has been restarted with hold parameters. (4) GERD (gastroesophageal reflux disease) Status: Chronic Assessment & Plan: She is on chronic treatment with Omeprazole. She will be placed on Protonix throughout admission. (5) Hypothyroidism Status: Chronic Assessment & Plan: She is on chronic treatment with Levothyroxine. (6) Hyperlipidemia Status: Chronic Assessment & Plan: She is on chronic treatment with Atorvastatin. Exam Sepsis Risk: No Definite Risk Problem Qualifiers (1) Hypertension: Hypertension type: essential hypertension Qualified Codes: I10 - Essential (primary) hypertension ANTONIO DIAZ [employer] Jul 28, 2018 10:18
[2018-07-28 11:19] VITALS: BP 131/85
[2018-07-28] MEDS ORDERED: ASPI-870 PO (14:08)
--- NOTE | 2018-07-28 14:15 | NUR ---
Physical Therapy Impression PT eval complete. VSS, Pt on room air. No CORDERO with HOB at 45 deg, no CORDERO with sitting at EOB, no CORDERO with functional mobility. Pt demonstrates appropriate understanding of lumbar precautions, log rolling, and safety with functional mobility and is safe for DC when medically appropriate. Physical Therapy Goals Patient's Goals
[2018-07-28] MEDS ORDERED: LOR5/325 PO (15:13)
[2018-07-28] MEDS ORDERED: DIAZ-303 PO (15:14)
[2018-07-28] MEDS ORDERED: DOCU240C84 PO (15:14)
[2018-07-28 15:20] VITALS: BP 113/88
== END 2018-07-28 16:00 | disposition home or self-care (01) | DRG 519 ==
LOC: OR 00:07 → MED 12:50
PROVIDERS: ADMIT Orthopaedic Surgery; ATTEND Orthopaedic Surgery
PROC: 00UT0JZ Supplement Spinal Meninges with Synthetic Substitute, Open Approach (ICD-10-PCS; 2018-07-27)
PROC: 0SB20ZZ Excision of Lumbar Vertebral Disc, Open Approach (ICD-10-PCS; principal; 2018-07-27 09:29)
DX: M51.16 Intervertebral disc disorders with radiculopathy, lumbar region (principal); G97.0 Cerebrospinal fluid leak from spinal puncture; I10 Essential (primary) hypertension; E78.5 Hyperlipidemia, unspecified; E11.9 Type 2 diabetes mellitus without complications; G47.33 Obstructive sleep apnea (adult) (pediatric); K21.9 Gastro-esophageal reflux disease without esophagitis; F32.9 Major depressive disorder, single episode, unspecified; M79.7 Fibromyalgia; E03.9 Hypothyroidism, unspecified; Z88.0 Allergy status to penicillin; Z88.5 Allergy status to narcotic agent; Z79.84 Long term (current) use of oral hypoglycemic drugs; Y83.8 Other surgical procedures as the cause of abnormal reaction of the patient, or of later complication, without mention of misadventure at the time of the procedure; Y79.3 Surgical instruments, materials and orthopedic devices (including sutures) associated with adverse incidents
CPT/HCPCS: 36415; 36416; 72020; 82040; 82247; 82310; 82374; 82435; 82565; 82947; 82948; 84075; 84132; 84155; 84295; 84443; 84450; 84460; 84520; 85025; 93005; 97161; C1763; J1100; J1630; J2001; J2250; J2405; J2704; J3010; J3490; J7120; J8501